=== PATIENT | male | born 1950 | race Caucasian/White ===

== ENCOUNTER 2017-06-18 17:16 | Emergency (ER) | payer OTHER ==
[~2017-06-18] VITALS: Ht 177.8 cm; Wt 98.4 kg
[~2017-06-18 17:16] MED LIST: ADULT LOW STREN81 M2 PO; ATENOLOL50 MG PO; BENAZEPRIL HCL20 MG PO; BENAZEPRIL HCL40 MG PO; CELEXA; CHOLESTEROL MED; CITALOPRAM HBR40 MG PO; KEFLEX500 MG PO; METFORMIN HCL1000 MG PO; MOTRIN800 MG PO; NAPROSYN500 MG PO; NORCO 7.5/321 TABLET PO; PIOGLITAZONE HC45 MG PO; PRAVASTATIN SOD40 MG PO
[2017-06-18] MEDS ORDERED: NORCO 5/3251 TABLET PO (20:29)
[2017-06-18 20:41] VITALS: BP 131/77
== END 2017-06-18 20:41 | disposition home or self-care (01) ==
LOC: EXP 17:16 → EME 17:16 → EXP 20:41
PROC: 3E0234Z Introduction of Serum, Toxoid and Vaccine into Muscle, Percutaneous Approach (ICD-10-PCS; principal; 2017-06-18)
DX: S46.001A Unspecified injury of muscle(s) and tendon(s) of the rotator cuff of right shoulder, initial encounter (principal); S59.901A Unspecified injury of right elbow, initial encounter; W11.XXXA Fall on and from ladder, initial encounter; E11.9 Type 2 diabetes mellitus without complications; E78.5 Hyperlipidemia, unspecified; I10 Essential (primary) hypertension; Z79.82 Long term (current) use of aspirin; Z79.84 Long term (current) use of oral hypoglycemic drugs
CPT/HCPCS: 73030; 73080; 99281; 99283

== ENCOUNTER 2017-07-13 14:38 | Emergency (ER) | payer OTHER ==
[~2017-07-13] VITALS: Ht 177.8 cm; Wt 99.1 kg
[~2017-07-13 14:38] MED LIST changes: +NORCO 5/3251 TABLET PO
[2017-07-13] MEDS ORDERED: NAPROXEN500 MG PO (16:28)
[2017-07-13 16:45] VITALS: BP 116/85
== END 2017-07-13 16:46 | disposition home or self-care (01) ==
LOC: EME 14:38
PROC: 0JQG0ZZ Repair Right Lower Arm Subcutaneous Tissue and Fascia, Open Approach (ICD-10-PCS; principal; 2017-07-13)
DX: S51.811A Laceration without foreign body of right forearm, initial encounter (principal); S81.831A Puncture wound without foreign body, right lower leg, initial encounter; W01.0XXA Fall on same level from slipping, tripping and stumbling without subsequent striking against object, initial encounter; W45.0XXA Nail entering through skin, initial encounter
CPT/HCPCS: 99281; 99284

== ENCOUNTER 2017-12-20 17:55 | Emergency (ER) | payer OTHER ==
[~2017-12-20] VITALS: Ht 180.3 cm; Wt 96.7 kg
[~2017-12-20 17:55] MED LIST changes: +NAPROXEN500 MG PO
[2017-12-20 20:53] VITALS: BP 133/79
== END 2017-12-20 20:47 | disposition home or self-care (01) ==
LOC: EME 17:55
PROC: 0HQLXZZ Repair Left Lower Leg Skin, External Approach (ICD-10-PCS; principal; 2017-12-20)
DX: S81.812A Laceration without foreign body, left lower leg, initial encounter (principal); W31.2XXA Contact with powered woodworking and forming machines, initial encounter; Y93.H2 Activity, gardening and landscaping; E11.9 Type 2 diabetes mellitus without complications; I10 Essential (primary) hypertension; Z87.891 Personal history of nicotine dependence
CPT/HCPCS: 73590; 99281; 99284